=== PATIENT | male | born 1960 | race African-American/Black ===

== ENCOUNTER 2018-02-06 10:40 | Emergency (ER) | payer MEDICAID ==
[~2018-02-06] VITALS: Ht 185.4 cm; Wt 166.0 kg
[~2018-02-06 10:40] MED LIST: ASPIRIN PO; LASIX PO; LISI-651; NORVASC PO; POTA20TA82 PO
[2018-02-06] MEDS ORDERED: MORPHINE SULFATE 4 MG/ML CPJ (NOT FOR IM USE) IV STA (11:26)
[2018-02-06] MEDS ORDERED: ONDANSETRON HCL 4MG/2ML VIAL IV STA (11:26)
[2018-02-06] MEDS ORDERED: SODIUM CHLORIDE 0.9% 1,000 ML IV ONE (11:26)
[2018-02-06] MEDS ORDERED: VANCOMYCIN 1 G PREMIX 200 ML IV SCH (11:30)
[2018-02-06] MEDS ORDERED: PIPERACILLIN/TAZ 3.375G PREMIX 50 ML IV ONE (11:30)
[2018-02-06 13:06] LABS: BASOPHILS % 0.7 % (0.0-2.0); EOSINOPHILS % 5.3 % (0.0-5.0); HEMATOCRIT. 33.2 % (42.0-52.0); HEMOGLOBIN. 10.6 g/dL (14.0-18.0); LYMPHOCYTES % 16.5 % (20.0-50.0); MEAN CORPUSCULAR HEMOGLOBIN 26.8 pg (28.0-32.0); MEAN CORPUSCULAR VOLUME 83.6 fL (80.0-94.0); MEAN PLATELET VOLUME 9.1 fl (7.4-10.4); MONOCYTES % 8.6 % (2.0-8.0); NEUTROPHILS % 68.9 % (40.0-76.0); PLATELET 213 x1000/uL (130-400); RED BLOOD CELL COUNT 3.97 mill/uL (4.7-6.1); RED CELL DISTRIBUTION WIDTH 17.5 % (11.6-14.6)
[2018-02-06 13:08] LABS: CHLORIDE 104 mEq/L (98-107)
[2018-02-06] MEDS ORDERED: MORPHINE SULFATE 4 MG/ML CPJ (NOT FOR IM USE) IV ONE (13:15)
[2018-02-06 13:21] LABS: PARTIAL THROMBOPLASTIN TIME 26.4 sec (23.4-31.0)
[2018-02-06] MEDS ORDERED: HYDROCODONE/ACETAMINOPHEN 5/325MG TABLET PO ONE (15:00)
[2018-02-06 15:20] VITALS: BP 119/82
== END 2018-02-06 15:22 | disposition home or self-care (01) ==
LOC: ER 12:36
DX: L03.115 Cellulitis of right lower limb (principal); I89.0 Lymphedema, not elsewhere classified; M25.561 Pain in right knee; I10 Essential (primary) hypertension; M54.30 Sciatica, unspecified side; Z88.9 Allergy status to unspecified drugs, medicaments and biological substances; Z91.041 Radiographic dye allergy status; Z79.82 Long term (current) use of aspirin
CPT/HCPCS: 36415; 71045; 73630; 80048; 85025; 85610; 85730; 86850; 86900; 86901; 87040; 93005; 93970; 96365; 96367; 96375; 96376; 99285; J2270; J2405; J2543; J3370; J7030

== ENCOUNTER 2018-02-11 10:00 | Emergency (ER) | payer MEDICAID ==
[~2018-02-11] VITALS: Ht 185.4 cm; Wt 190.0 kg
[2018-02-11] MEDS ORDERED: MORPHINE SULFATE 10 MG/ML CPJ IM ONE (10:45)
[2018-02-11] MEDS ORDERED: ONDANSETRON 4MG ODT PO ONE (11:00)
[2018-02-11] MEDS ORDERED: KETOROLAC 30MG/ML VIAL IM ONE (11:15)
[2018-02-11 12:13] VITALS: BP 144/78
== END 2018-02-11 12:18 | disposition home or self-care (01) ==
LOC: ER 10:52
DX: M84.474A Pathological fracture, right foot, initial encounter for fracture (principal); M79.671 Pain in right foot; I10 Essential (primary) hypertension; M54.30 Sciatica, unspecified side; Z79.82 Long term (current) use of aspirin; Z96.659 Presence of unspecified artificial knee joint; Z91.041 Radiographic dye allergy status; Z88.8 Allergy status to other drugs, medicaments and biological substances
CPT/HCPCS: 96372; 99284; J1885; J2270; Q0162; Z7610

== ENCOUNTER 2018-02-14 10:04 | Emergency (ER) | payer MEDICAID ==
[~2018-02-14] VITALS: Ht 185.4 cm; Wt 190.0 kg
[2018-02-14] MEDS ORDERED: IBUPROFEN 600MG TABLET PO ONE (11:45)
[2018-02-14] MEDS ORDERED: ACETAMINOPHEN 325MG TABLET PO ONE (11:45)
[2018-02-14] MEDS ORDERED: KETOROLAC 60MG/2ML VIAL IM ONE (12:15)
[2018-02-14 12:24] VITALS: BP 132/80
== END 2018-02-14 13:57 | disposition home or self-care (01) ==
LOC: ER 12:22
DX: I89.0 Lymphedema, not elsewhere classified (principal); I10 Essential (primary) hypertension; Z79.891 Long term (current) use of opiate analgesic; Z88.8 Allergy status to other drugs, medicaments and biological substances; Z79.82 Long term (current) use of aspirin
CPT/HCPCS: 73562; 96372; 99284; J1885

== ENCOUNTER 2018-03-05 09:55 | Emergency (ER) | payer MEDICAID ==
[~2018-03-05] VITALS: Ht 185.4 cm; Wt 168.0 kg
[2018-03-05] MEDS ORDERED: KETOROLAC 60MG/2ML VIAL IM ONE (11:30)
[2018-03-05 11:48] VITALS: BP 147/67
== END 2018-03-05 16:59 | disposition home or self-care (01) ==
LOC: ER 13:36
DX: M79.671 Pain in right foot (principal); N40.0 Benign prostatic hyperplasia without lower urinary tract symptoms; N30.00 Acute cystitis without hematuria; I10 Essential (primary) hypertension; M54.30 Sciatica, unspecified side; Z88.8 Allergy status to other drugs, medicaments and biological substances; Z91.09 Other allergy status, other than to drugs and biological substances
CPT/HCPCS: 96372; 99283; J1885

== ENCOUNTER 2018-03-17 10:56 | Emergency (ER) | payer MEDICAID ==
[~2018-03-17] VITALS: Ht 185.4 cm; Wt 168.0 kg
[2018-03-17] MEDS ORDERED: KETOROLAC 60MG/2ML VIAL IM ONE (11:30)
[2018-03-17] MEDS ORDERED: ONDANSETRON 4MG ODT PO ONE (11:30)
[2018-03-17] MEDS ORDERED: HYDROCODONE/ACETAMINOPHEN 5/325MG TABLET PO ONE (11:30)
[2018-03-17 11:48] VITALS: BP 172/67
[2018-03-17 12:08] LABS: CLARITY URINE CLEAR (CLEAR); COLOR URINE YELLOW (YELLOW); KETONES URINE NEGATIVE (NEGATIVE); LEUKOCYTE ESTERASE URINE NEGATIVE (NEGATIVE); NITRITE URINE NEGATIVE (NEGATIVE); OCCULT BLOOD URINE 1+ (NEGATIVE); PH URINE 5.5 (4.5-8.0); PROTEIN URINE NEGATIVE (NEGATIVE); SPECIFIC GRAVITY URINE 1.014 (1.005-1.030)
== END 2018-03-17 13:11 | disposition home or self-care (01) ==
LOC: ER 12:11
DX: N40.1 Benign prostatic hyperplasia with lower urinary tract symptoms (principal); R30.0 Dysuria; R35.0 Frequency of micturition; R39.15 Urgency of urination; M72.2 Plantar fascial fibromatosis; I10 Essential (primary) hypertension; E66.01 Morbid (severe) obesity due to excess calories; Z68.42 Body mass index [BMI] 45.0-49.9, adult; M54.40 Lumbago with sciatica, unspecified side; Z91.041 Radiographic dye allergy status; Z88.8 Allergy status to other drugs, medicaments and biological substances
CPT/HCPCS: 81003; 87086; 96372; 99284; J1885; Q0162; Z7610; 99283

== ENCOUNTER 2018-04-23 11:01 | Emergency (ER) | payer MEDICAID ==
[~2018-04-23] VITALS: Ht 167.6 cm; Wt 209.0 kg
[2018-04-23 11:03] VITALS: BP 157/88
== END 2018-04-23 14:13 | disposition left against medical advice (07) ==
LOC: ER 11:38
DX: Z53.21 Procedure and treatment not carried out due to patient leaving prior to being seen by health care provider (principal)

== ENCOUNTER 2021-03-11 11:41 | Emergency (ER) | payer MEDICAID ==
[~2021-03-11] VITALS: Ht 172.7 cm; Wt 113.0 kg
[2021-03-11 13:17] LABS: BG BASE EXCESS 1.3 mmol/L (-2.0-2.0); BG CARBOXYHEMOGLOBIN 0.3 % (0.5-1.5); BG DEOXYHEMOGLOBIN 2.4 % (0.0-5.0); BG FRACTION INSPIRED OXYGEN 21; BG HCO3 ACT 25.2 mmol/L (22.0-26.0); BG METHEMOGLOBIN 0.3 % (0.0-1.5); BG OXYGEN SATURATION 97.6 % (92.0-98.5); BG PCO2 37.2 mmHg (35.0-45.0); BG PH 7.449 (7.350-7.450); BG PO2 104.7 mmHg (75.0-100.0); BG SAMPLE SITE RIGHT BRACHIAL; BG TOTAL HEMOGLOBIN 10.9 g/dL (12.0-18.0); BG VENT MODE ROOM AIR
[2021-03-11 14:02] LABS: BASOPHILS % 0.6 % (0.0-2.0); EOSINOPHILS % 1.3 % (0.0-5.0); HEMOGLOBIN. 11.3 g/dL (14.0-18.0); LYMPHOCYTES % 17.9 % (20.0-50.0); MEAN CORPUSCULAR HEMOGLOBIN 29.9 pg (28.0-32.0); MEAN CORPUSCULAR VOLUME 89.9 fL (80.0-94.0); NEUTROPHILS % 73.2 % (40.0-76.0); PLATELET 146 x1000/uL (130-400); RED BLOOD CELL COUNT 3.79 mill/uL (4.7-6.1); RED CELL DISTRIBUTION WIDTH 19.1 % (11.6-14.6)
[2021-03-11 14:10] LABS: CHLORIDE 107 mEq/L (98-107)
[2021-03-11 14:12] VITALS: BP 133/109
[2021-03-11 14:14] LABS: PROTHROMBIN TIME 10.6 sec (9.6-11.0)
[2021-03-11] MEDS ORDERED: ALBU6.7H9 IH (15:38)
== END 2021-03-11 16:20 | disposition home or self-care (01) ==
LOC: ER 11:41
DX: R06.02 Shortness of breath (principal); R79.89 Other specified abnormal findings of blood chemistry; I10 Essential (primary) hypertension; E78.00 Pure hypercholesterolemia, unspecified
CPT/HCPCS: 36415; 36600; 71045; 80053; 82375; 82805; 83880; 84484; 85025; 93005; 99285